=== PATIENT | male | born 1945 | race Two or more races ===

== ENCOUNTER 2017-12-22 07:45 | Day surgery (SDC) | payer MEDICARE, BC ==
[~2017-12-22] VITALS: Ht 180.3 cm; Wt 102.1 kg
[2017-12-22] VITALS (8 sets, daily range): BP systolic 132–147; BP diastolic 73–94
[~2017-12-22 07:45] MED LIST: DIOVAN40 MG PO; FISH OIL300 MG PO; FOLIC ACID1 MG PO; GARLIC PO; GLUCOPHAGE500 MG PO; LR 1000ml 1,000 ML IVLG SCH; NIASPAN500 MG PO; SIMVASTATIN10 MG PO; VITAMIN C60 MG PO
--- NOTE | 2017-12-22 08:18 | Anethesia Preoperative Eval ---
Anesthesia Pre-op PMH/ROS General Date of Evaluation: Dec 22, 2017 Time of Evaluation: 08:20 Anesthesiologist: Paula ASA Score: ASA 2 Mallampati Score Class I : Soft palate, uvula, fauces, pillars visible Class II: Soft palate, uvula, fauces visible Class III: Soft palate, base of uvula visible Class IV: Only hard plate visible Mallampati Classification: Class II Surgeon: Dyana Diagnosis: IBS Surgical Procedure: Colonoscopy Anesthesia History: none Family History: no anesthesia problems Allergies: Uncoded Allergies: ASPIRIN (Adverse Reaction, Mild, GI UPSET, 08/06/12) Medications: see eMAR Past Medical History Cardiovascular: Reports: HTN, CAD - hx of CABG Pulmonary: Reports: MORENITA - uses CPAP Gastrointestinal/Genitourinary: Denies: GERD, CRI, ESRD, other Neurologic/Psychiatric: Denies: dementia, CVA, depression/anxiety, TIA, other Endocrine: Reports: DM HEENT: Denies: cataract (L), cataract (R), glaucoma, [place] (L), [place] (R), other Musculoskeletal/Integumentary: Reports: OA Other: obesity PSxH Narrative: CABG 20 years ago Anesthesia Pre-op Phys. Exam Physician Exam Constitutional: NAD Neurologic: CN 2-12 intact Cardiovascular: RRR Respiratory: CTA - diminised at base Gastrointestinal: S/NT/ND Airway Exam Mallampati Score: Class II MO: full ROM: full Teeth: intact - implants Dentures: no upper, no lower Anesthesia Pre-op A/P Labs chart reviewed Accucheck 129 Risk Assessment & Plan Assessment: A&Ox4 Plan: MAC Status Change Before Surgery: No Pre-Antibiotics Given Within 1 Hr of Incision: No - none per surgeon Ary Mitchell CRNA Dec 22, 2017 08:18
--- NOTE | 2017-12-22 08:21 | Short Stay Surgery H&P ---
History of Present Illness History of Present Illness Chief Complaint History of colon polyps/diverticulosis HPI Yuniel Rodriguez is a 72 year old male who was admitted on following up on his history of coloon polyps/screening colon for CA Patient History Allergies: Uncoded Allergies: ASPIRIN (Adverse Reaction, Mild, GI UPSET, 08/06/12) PAST MEDICAL HISTORY: Past Surgeries: Social History: Medication History Scheduled Ascorbic Acid (Vitamin C), MG PO DAILY, (Reported) Folic Acid* (Folic Acid*), 1 MG PO DAILY, (Reported) Garlic (Garlic), 580 MG PO DAILY, (Reported) Metformin Hcl* (Glucophage*), 500 MG PO DAILY, (Reported) Niacin (Niaspan), MG PO DAILY, (Reported) [place]-3 Fatty Acids (Fish Oil), 300 MG PO DAILY, (Reported) Simvastatin (Zocor), MG PO DAILY, (Reported) Valsartan (Diovan), 40 MG PO DAILY, (Reported) Review of Systems Cardiovascular: Reports: no symptoms Respiratory: Reports: no symptoms Skeletal: Reports: no symptoms Gastrointestinal: Reports: see HPI Genitourinary: Reports: no symptoms Neurologic: Reports: no symptoms Endocrine: Reports: diabetes - type 2 Hematologic: Reports: no symptoms Physical Exam Skin: normal HENT: normal Heart: normal Lungs: normal Abdomen: normal Extremities: normal Genitourinary: normal Plan Plan of Care Screening colonoscopy Preop Interventions None. Summary of Findings See the reports Final Diagnosis: Attestation Are the patient's medical conditions optimized for surgery? Attestation Response: yes BECKY OLIVERA Dec 22, 2017 08:21
--- NOTE | 2017-12-22 08:22 | Pre-Procedure Note/Attestation ---
Pre-Procedure Note/Attestation Complete Prior to Procedure Planned Procedure: left Procedure Narrative: endsocopy of the coloon for cancer Indications for Procedure Pre-Operative Diagnosis: R/O cancer of colon Attestation I attest that I discussed the nature of the procedure; its benefits; risks and complications; and alternatives (and the risks and benefits of such alternatives ), prior to the procedure, with the patient (or the patient's legal computer help desk representative). I attest that, if there was a reasonable possibility of needing a blood transfusion, the patient (or the patient's legal computer help desk representative) was given the [facility] standardized written summary, pursuant to the [place] Blood Safety Act ([place] Health and Safety Code # 1645, as amended). I attest that I re-evaluated the patient just prior to the surgery and that there has been no change in the patient's H&P, except as documented below: JOSELIN,SAID Dec 22, 2017 08:21
[2017-12-22] MEDS ORDERED: Propofol 200mg/20ml IV ONE (08:30)
[2017-12-22] MEDS ORDERED: Midazolam 2mg/2ml Inj ONE (08:30)
[2017-12-22] MEDS ORDERED: Lidocaine 1% MPF 10mg/ml 5ml ONE (08:30)
[2017-12-22] MEDS ORDERED: LR 1000ml ONE (08:30)
--- NOTE | 2017-12-22 08:47 | Immediate Post-Op Evaluation ---
Immediate Post-Op Evalulation Immediate Post-Op Evalulation Procedure: colonoscopy Date of Evaluation: Dec 22, 2017 Time of Evaluation: 09:04 IV Fluids: LR 400ml Blood Products: 0 Estimated Blood Loss: 0 Urinary Output: 0 Blood Pressure Systolic: 145 Blood Pressure Diastolic: 86 Pulse Rate: 63 Respiratory Rate: 20 O2 Sat by Pulse Oximetry: 100 Temperature (Fahrenheit): 97.7 Pain Score (1-10): 0 Nausea: No Vomiting: No Complications none Patient Status: awake, reacts Hydration Status: adequate Given Within 1 Hr of Incision: Ary Lincoln CRNA Dec 22, 2017 08:47
--- NOTE | 2017-12-22 08:55 | 48 Hour Post Anesthesia Eval ---
Post Anesthesia Evaluation Procedure: colonoscopy with biopsy Date of Evaluation: Dec 22, 2017 Time of Evaluation: 09:15 Blood Pressure Systolic: 142 0: 82 Pulse Rate: 65 Respiratory Rate: 18 Temperature (Fahrenheit): 97.7 O2 Sat by Pulse Oximetry: 100 Airway: patent Nausea: No Vomiting: No Pain Intensity: 0 Hydration Status: adequate Mental Status/LOC: patient returned to baseline Post-Anesthesia Complications: none noted Follow-up care needed: patient intructions given Ary Mitchell CRNA Dec 22, 2017 08:55
--- NOTE | 2017-12-22 09:00 | Endoscopy Procedure Note ---
Endoscopy Procedure Note General Indication for Procedure: History of colon polyps/screenning Procedures Performed: colonoscopy - Poor colon prep. multiple diminutive/ hyperplastic polyps of 2-3 mm polyps removed with colon biopsy forceps, otherwise non significant colonoscopy. Specimen: yes Pt Tolerated Procedure Well: Yes Estimated Blood Loss: none Anesthesia Anesthesiologist: Ms. Ary Mitchell RN Anesthesia: moderate sedation Medications Medication Given: see anesthesia record Inserted Devices Implant(s) used?: No Quality Quality of Bowel Preparation: Poor Did scope reach the cecum?: Yes Was there any complications?: No GI Core Measures 50 yrs or older w/o bx or poly: Yes 10yrs. F/U not recommended: Yes 10 yrs. F/U needed: Yes Med reason:<3 yrs.: System Reason:<3 yrs.: Last colonoscopy >= to 3yrs: Yes BECKY OLIVERA Dec 22, 2017 09:00
--- NOTE | 2017-12-22 09:01 | Discharge Instructions ---
Discharge Instructions Discharge Instructions Follow up with: See the docotor after two weeks in the office For Congestive Heart Failure Reminder Report to your physician any weight gain of 5 pounds or more in one week. BECKY OLIVERA Dec 22, 2017 09:01
--- NOTE | 2017-12-22 20:45 | Procedure Note ---
DATE OF PROCEDURE: 12/22/2017 SURGEON: Kevin Turpin M.D. PROCEDURE: Total colonoscopy with multiple polypectomies. PREOPERATIVE DIAGNOSIS: History of colon polyps with screening colonoscopy. POSTOPERATIVE DIAGNOSES: 1. Multiple diminutive polypoid lesions were removed from different parts of the colon with cold biopsy forceps. 2. Poor colonic preparation, otherwise normal study. MEDICATION USED: Per Ms. Ary Mitchell RN. INSTRUMENT: GIF Olympus video colonoscope. DESCRIPTION OF PROCEDURE: The patient after arriving in the endoscopy unit, was told about risks and benefits of the procedure, which he accepted and signed the informed consent. At this time, he was put on the left lateral decubitus position. After adequate IV sedation, the scope was gently passed through the anal area, which revealed normal findings. The retroflexion maneuver was also done in here and rectum was free of any abnormality except it was noted that there was a 2 to 3 mm very soft, diminutive polyp type of lesion was seen over the 20 cm from the anus, which was grabbed with cold biopsy forceps and totally removed. At this point, the scope was passed through highly redundant left colon, which was filled with liquidy stools suggestive of poor colonic preparation. However, there was no any pathology found in this area and the scope was gradually passed into transverse colon reaching to the proximal transverse colon as another 2 to 3 mm hyperplastic-type polyp was noted and it was removed with cold biopsy forceps as well. At this time, the scope was passed through the right colon all the way to the base of the cecum and over the hepatic flexure, there was another hyperplastic polyp noted with the same size of 2 to 3 mm, which was grabbed with cold biopsy forceps and totally removed. Finally, the scope reached to the base of the cecum and finding no abnormality, the scope was gradually pulled out within 7 minutes and re-evaluation of the colon did not reveal any other abnormalities. It has to be mentioned that other possible small hyperplastic polyps could not be ruled out due to lack of adequate colon clean up. The patient tolerated the procedure well and left the endoscopy room in a good condition. Kevin Turpin M.D. DR: /MICHAEL JOB#: [id number] CC: ANGEL
== END 2017-12-22 10:30 | disposition home or self-care (01) ==
LOC: GAS 07:45
DX: Z12.11 Encounter for screening for malignant neoplasm of colon (principal); K63.5 Polyp of colon; Z88.6 Allergy status to analgesic agent; E11.9 Type 2 diabetes mellitus without complications; Z79.84 Long term (current) use of oral hypoglycemic drugs; I11.9 Hypertensive heart disease without heart failure; Z95.1 Presence of aortocoronary bypass graft; M19.90 Unspecified osteoarthritis, unspecified site
CPT/HCPCS: 45380; 82962; J2250; J2704; J7120; 94003; 94150